=== PATIENT | male | born 1965 | race African-American/Black ===

== ENCOUNTER 2017-09-26 11:15 | Emergency (ER) | payer SELFPAY ==
[~2017-09-26] VITALS: Ht 182.9 cm; Wt 76.4 kg
[~2017-09-26 11:15] MED LIST: AMOXICILLIN 50500 MG PO; FLEXERIL 1010 MG/TAB PO; FLEXERIL10 MG PO; KLONOPIN 0.5MG0.5 MG PO; LORTAB 5/500 501 TAB PO; NAPROSYN500 MG PO; NEURONTIN100 MG/CAP PO; NO HOME MEDICATIONS; NORCO 325 MG-51 TAB PO; PERCOCET 325 MG1 TA2 PO; PHENERGAN 25 TA25 MG PO; PREDNISONE10 MG PO; PROTONIX 40MG T40 MG PO; REMERON 15M15 MG/TA1 PO; [UNRECOGNIZED DRUG - REMARK]
[2017-09-26 11:19] VITALS: BP 161/76; TEMP 98.9
[2017-09-26] MEDS ORDERED: TYLENOL 500MG500 MG PO (11:36)
[2017-09-26] MEDS ORDERED: AMOXICILLIN 8751 TAB PO (12:41)
[2017-09-26 13:00] VITALS: PULSE 70
== END 2017-09-26 13:00 | disposition home or self-care (01) ==
LOC: COL.ER 11:15
DX: S61.411A Laceration without foreign body of right hand, initial encounter (principal); S67.21XA Crushing injury of right hand, initial encounter; F32.9 Major depressive disorder, single episode, unspecified; F17.210 Nicotine dependence, cigarettes, uncomplicated; F12.90 Cannabis use, unspecified, uncomplicated; Z23 Encounter for immunization; W23.0XXA Caught, crushed, jammed, or pinched between moving objects, initial encounter; Y92.009 Unspecified place in unspecified non-institutional (private) residence as the place of occurrence of the external cause

== ENCOUNTER 2017-09-28 11:00 | Emergency (ER) | payer SELFPAY ==
[~2017-09-28] VITALS: Ht 182.9 cm; Wt 77.3 kg
[~2017-09-28 11:00] MED LIST changes: +AMOXICILLIN 8751 TAB PO; +TYLENOL 500MG500 MG PO
[2017-09-28] MEDS ORDERED: TYLENOL W/COD1 UDTAB PO (11:23)
[2017-09-28 11:41] LABS: HEMATOCRIT 38.5 % (42.0-52.0); HEMOGLOBIN 13.2 g/dl (13.5-18.0); MEAN CELL VOLUME 89 fl (80.0-100.0); MEAN CORPUSCULAR HEMOGLOBIN 31 pg (27.0-31.0); MEAN CORPUSCULAR HGB CONC 34 g/dl (33.0-37.0); MEAN PLATELET VOLUME 9.7 fl (7.4-10.4); PLATELET COUNT 230 K/mm3 (130-400); RED BLOOD COUNT 4.33 M/mm3 (4.20-5.60); REDCELL DISTRIBUTION WIDTH-CV 13.8 % (11.5-14.5)
[2017-09-28 11:54] LABS: BAND 29 % (0-10); LYMPHOCYTE 5 % (20.0-51.0); METAMYELOCYTE 1 % (0-0); NEUTROPHILS 61 % (42.0-75.2); PLATELET ESTIMATE NORMAL (NORMAL)
[2017-09-28 12:41] LABS: ALBUMIN 3.7 gm/dL (3.5-5.0); BILIRUBIN,TOTAL 1.1 mg/dL (0.0-1.0); C-REACTIVE PROTEIN 7.4 mg/dL (0.0-0.9); CALCIUM 9.9 mg/dL (8.4-10.2); CREATININE, serum 0.94 mg/dL (0.66-1.25); POTASSIUM 3.8 mmol/L (3.4-5.0); TOTAL PROTEIN 7.5 gm/dL (6.4-8.2)
[2017-09-28 13:43] LABS: COLLECTION METHOD CLEAN CATCH
[2017-09-28 13:51] LABS: MUCOUS Present /lpf; PH 5 (5-8); SQUAMOUS EPITHELIAL 0-2 /hpf; URINE APPEARANCE Hazy; URINE BACTERIA Rare /hpf; URINE BILIRUBIN Negative (NEGATIVE); URINE BLOOD 2+ (NEGATIVE); URINE COLOR Amber; URINE GLUCOSE Negative (NEGATIVE); URINE KETONE Negative (NEGATIVE); URINE LEUKOCYTE ESTERASE 2+ (NEGATIVE); URINE NITRATE Positive (NEGATIVE); URINE PROTEIN(semi-quant) 2+ (NEGATIVE); URINE UROBILINOGEN >=4.0 mg/dL (NEGATIVE)
[2017-09-28 14:24] VITALS: TEMP 98.5
[2017-09-28] MEDS ORDERED: CIPRO 500MG TA500 MG PO (14:32)
[2017-09-28] MEDS ORDERED: PYRIDIUM200 M1 PO (14:32)
[2017-09-28] MEDS ORDERED: NORCO 325 MG-51 TAB PO (14:32)
[2017-09-28 15:17] VITALS: BP 121/82; PULSE 69
== END 2017-09-28 15:27 | disposition home or self-care (01) ==
LOC: COL.ER 11:00
PROVIDERS: Emergency Medicine
DX: R31.9 Hematuria, unspecified (principal); N39.0 Urinary tract infection, site not specified
CPT/HCPCS: J0696; J1170; J1885; J2405; J7030

== ENCOUNTER 2019-01-02 09:04 | Emergency (ER) | payer SELFPAY ==
[~2019-01-02] VITALS: Wt 84.1 kg
[~2019-01-02 09:04] MED LIST changes: +CIPRO 500MG TA500 MG PO; +PYRIDIUM200 M1 PO; +TYLENOL W/COD1 UDTAB PO
[2019-01-02 10:44] LABS: COLLECTION METHOD CLEAN CATCH
[2019-01-02 10:51] LABS: MUCOUS Present /lpf; PH 5 (5-8); SQUAMOUS EPITHELIAL None Seen /hpf; URINE APPEARANCE Hazy; URINE BACTERIA None Seen /hpf; URINE BILIRUBIN Negative (NEGATIVE); URINE BLOOD 2+ (NEGATIVE); URINE COLOR Yellow; URINE GLUCOSE Negative (NEGATIVE); URINE KETONE 2+ (NEGATIVE); URINE LEUKOCYTE ESTERASE Negative (NEGATIVE); URINE NITRATE Negative (NEGATIVE); URINE PROTEIN(semi-quant) 1+ (NEGATIVE); URINE RBC 0-2 /hpf; URINE UROBILINOGEN Negative (NEGATIVE)
[2019-01-02 10:56] LABS: BILIRUBIN,TOTAL 0.7 mg/dL (0.0-1.0); C-REACTIVE PROTEIN 3.7 mg/dL (0.0-0.9); CALCIUM 9.3 mg/dL (8.4-10.2); CREATININE, serum 1.06 (0.66-1.25); POTASSIUM 3.7 mmol/L (3.4-5.0); TOTAL PROTEIN 7.3 gm/dL (6.4-8.2)
[2019-01-02 11:09] LABS: BASO % 0.3 % (0.0-2.0); EOS % 0.3 % (0-4.0); GRAN # 9.2 (1.4-6.5); GRAN % 78.2 % (42.2-75.2); HEMATOCRIT 40.9 % (42.0-52.0); HEMOGLOBIN 13.5 g/dl (13.5-18.0); LYMPH # 1.5 (1.2-3.4); LYMPH % 12.6 % (20.0-51.0); MEAN CELL VOLUME 85 fl (80.0-100.0); MEAN CORPUSCULAR HEMOGLOBIN 28 pg (27.0-31.0); MEAN CORPUSCULAR HGB CONC 33 g/dl (33.0-37.0); MEAN PLATELET VOLUME 9.2 fl (7.4-10.4); MONO % 8.2 % (1.7-9.3); PLATELET COUNT 214 K/mm3 (130-400); RED BLOOD COUNT 4.82 M/mm3 (4.20-5.60); REDCELL DISTRIBUTION WIDTH-CV 13.7 % (11.5-14.5)
[2019-01-02 11:16] LABS: TRICYCLIC ANTIDEPRESS URINE NEGATIVE
[2019-01-02] MEDS ORDERED: CIPRO 500MG TA500 MG PO (14:58)
[2019-01-02] MEDS ORDERED: FLAGYL500 MG PO (14:58)
[2019-01-02] MEDS ORDERED: PHENERGAN 25 TA25 MG PO (14:59)
[2019-01-02] MEDS ORDERED: [UNRECOGNIZED DRUG - REMARK] (15:00)
[2019-01-02 15:30] VITALS: BP 173/99; PULSE 62; TEMP 98.1
== END 2019-01-02 15:30 | disposition home or self-care (01) ==
LOC: COL.ER 09:04
PROVIDERS: Emergency Medicine
DX: K52.9 Noninfective gastroenteritis and colitis, unspecified (principal); F17.210 Nicotine dependence, cigarettes, uncomplicated; F12.90 Cannabis use, unspecified, uncomplicated; F11.90 Opioid use, unspecified, uncomplicated
CPT/HCPCS: J1170; J1200; J1630; J2060; J2550; J7030; Q9967

== ENCOUNTER 2019-10-23 10:15 | Emergency (ER) | payer SELFPAY ==
[~2019-10-23] VITALS: Ht 182.9 cm; Wt 84.1 kg
[~2019-10-23 10:15] MED LIST changes: +FLAGYL500 MG PO; +[UNRECOGNIZED DRUG - REMARK]
[2019-10-23 10:18] VITALS: TEMP 98
[2019-10-23 11:24] VITALS: BP 121/79; PULSE 61
== END 2019-10-23 11:27 | disposition home or self-care (01) ==
LOC: COL.ER 10:15
DX: S93.401A Sprain of unspecified ligament of right ankle, initial encounter (principal); F17.210 Nicotine dependence, cigarettes, uncomplicated; X50.1XXA Overexertion from prolonged static or awkward postures, initial encounter; Y92.009 Unspecified place in unspecified non-institutional (private) residence as the place of occurrence of the external cause